=== PATIENT | male | born 1990 | race Hispanic/Latino ===

== ENCOUNTER 2017-11-22 20:44 | Emergency (ER) | payer SELFPAY ==
[2017-11-22] MEDS ORDERED: Dexamethasone 4 MG TAB ONE (21:18)
[2017-11-22] MEDS ORDERED: diphenhydrAMINE 25 MG CAP ONE (21:18)
== END 2017-11-22 22:05 | disposition home or self-care (01) ==
LOC: MADERS 20:44
DX: L23.7 Allergic contact dermatitis due to plants, except food (principal)
CPT/HCPCS: 99283; J8540

== ENCOUNTER 2017-11-29 12:34 | Emergency (ER) | payer SELFPAY | END 2017-11-29 14:02 | disposition home or self-care (01) | LOC: MADERS 12:34 | DX: L23.7 Allergic contact dermatitis due to plants, except food (principal) | CPT/HCPCS: 96372; J1040 ==

== ENCOUNTER 2017-12-24 17:15 | Emergency (ER) | payer SELFPAY ==
[2017-12-24] MEDS ORDERED: Adacel (T-DAP) 0.5 ML VIAL ONE (17:23)
[2017-12-24] MEDS ORDERED: Lidocaine 1% 20 ML MDV ONE (17:23)
[2017-12-24] MEDS ORDERED: Bacitracin Zinc 1 Packet ONE (18:02)
== END 2017-12-24 18:20 | disposition home or self-care (01) ==
LOC: MADERS 17:15
DX: S61.212A Laceration without foreign body of right middle finger without damage to nail, initial encounter (principal); W26.0XXA Contact with knife, initial encounter
CPT/HCPCS: 12001; 90471; 90715; J2001

== ENCOUNTER → 2018-02-01 | Emergency (ER) | payer SELFPAY ==
[~2018-02-01] MED LIST: Ketorolac Tromethamine 30 MG/ML VIAL ONE; Morphine 4 MG/ML VIAL ONE; Ondansetron HCl/PF 4 MG/2 ML Vial ONE
[2018-02-01 23:30] LABS: #Basophils 0.1 thou/uL (0.0-0.2); #Lymphocytes 1.3 thou/uL (1.20-3.40); #Monocytes 0.9 thou/uL (0.11-0.59); #Neutrophils 9.7 thou/uL (1.40-6.50); %Basophils 0.6 % (0.0-1.0); %Eosinophils 0.1 % (0.0-10.0); %Lymphocytes 10.9 % (21.0-51.0); %Monocytes 7.5 % (0.0-10.0); %Neutrophils 80.9 % (42.0-75.0); Hemoglobin 15.2 g/dL (14.0-18.0); Mean Corpuscular HGB CONC 34.1 g/dL (32.0-36.0); Mean Corpuscular Hemoglobin 32.2 pg (27.0-31.0); Mean Corpuscular Volume 94.7 fL (78.0-98.0); Mean Platelet Volume 7.7 fL (7.4-10.4); Platelet Count 191 thou/uL (130-400); RBC Distribution Width 11.4 % (11.5-14.5); White Blood Cell (WBC) Count 11.9 thou/uL (4.8-10.8)
[2018-02-01 23:46] LABS: Anion Gap 16 mmol/L (10-20); BUN (Urea Nitrogen) 10 mg/dL (8.9-20.6); Calc. Creatinine Clearance 0 mL/min (70-130); Calcium 9.5 mg/dL (7.8-10.44); Carbon Dioxide 22 mmol/L (22-29); Chloride 104 mmol/L (98-107); Estimated GFR-MDRD Greater than 90; Glucose 114 mg/dL (70-105); Lipase 18 U/L (8-78); Potassium 3.9 mmol/L (3.5-5.1); Sodium 138 mmol/L (136-145)
== END ==
LOC: MADERS 22:50
DX: G89.18 Other acute postprocedural pain (principal); R10.33 Periumbilical pain
CPT/HCPCS: 36415; 80048; 83690; 85025; 96374; 96375; J1885; J2270; J2405